=== PATIENT | female | born 1995 | race Caucasian/White ===

== ENCOUNTER 2016-07-07 22:42 | Emergency (ER) | payer OTHER ==
[2016-07-07 23:11] VITALS: BP 112/76; PULSE 74; TEMP 97.7; BMI 23.3
[2016-07-08] MEDS ORDERED: CLINDAMYCIN HCL 300 MG CAPSULE PO ONE (00:51)
--- NOTE | 2016-07-08 00:55 | PDOC ---
History of Present Illness - General History Source: Patient Exam Limitations: No Limitations <Kranthi White - Last Filed: 07/08/16 00:56> - General History Source: Patient Exam Limitations: No Limitations - History of Present Illness Initial Comments: 07/08/16 01:05 The patient is a 20 year old female, with no significant past medical history, who presents to the emergency department with left sided mouth pain and swelling s/p wisdom tooth extraction 3 days ago. Since getting her wisdom teeth extracted, the patient noticed some mild pain and swelling to the area. The patient has been taking Motrin, with minimal relief. She presents to the ED for further evaluation. The patient denies fever, chills, nausea or vomiting. Allergies: Penicillin. Past Surgical History: None reported. Social History: Non smoker. Denies alcohol or drug use. <Tamika Cagle - Last Filed: 07/08/16 01:05> - General Chief Complaint: Toothache Stated Complaint: TOOTHACHE Time Seen by Provider: 07/08/16 00:45 Past History - Psycho/Social/Smoking Cessation Hx Anxiety: No Suicidal Ideation: No Smoking History: Never smoked Have you smoked in the past 12 months: No Information on smoking cessation initiated: No Hx Alcohol Use: No Drug/Substance Use Hx: No Substance Use Type: None <Kranthi White - Last Filed: 07/08/16 00:56> <Tamika Cagle - Last Filed: 07/08/16 01:05> - Past Medical History Allergies/Adverse Reactions: Allergies Allergy/AdvReac Type Severity Reaction Status Date / Time Penicillins Allergy Verified 07/08/16 00:54 Home Medications: Ambulatory Orders Acetaminophen [Tylenol] 650 mg PO PRN PRN 07/08/16 Clindamycin [Cleocin -] 300 mg PO Q6HPO #28 capsule 07/08/16 Oxycodone HCl/Acetaminophen [Percocet 5-325 mg Tablet] 1 tab PO Q6H PRN #10 tablet MDD 4 07/08/16 Review of Systems - Review of Systems Able to Perform ROS?: Yes Comments:: 07/08/16 01:01 GENERAL/CONSTITUTIONAL: No fever or chills. No weakness. HEAD, EYES, EARS, NOSE AND THROAT: +Left sided mouth pain and swelling. No change in vision. No ear pain or discharge. No sore throat. CARDIOVASCULAR: No chest pain or shortness of breath. RESPIRATORY: No cough, wheezing, or hemoptysis. GASTROINTESTINAL: No nausea, vomiting, diarrhea or constipation. GENITOURINARY: No dysuria, frequency, or change in urination. MUSCULOSKELETAL: No joint or muscle swelling or pain. No neck or back pain. SKIN: No rash. NEUROLOGIC: No headache, vertigo, loss of consciousness, or change in strength/ sensation. ENDOCRINE: No increased thirst. No abnormal weight change. HEMATOLOGIC/LYMPHATIC: No anemia, easy bleeding, or history of blood clots. ALLERGIC/IMMUNOLOGIC: No hives or skin allergy. <Tamika Cagle - Last Filed: 07/08/16 01:05> *Physical Exam - Vital Signs Last Vital Signs Temp Pulse Resp BP Pulse Ox 97.7 F 74 18 112/76 99 07/07/16 23:09 07/07/16 23:09 07/07/16 23:09 07/07/16 23:09 07/07/16 23:09 <Kranthi White - Last Filed: 07/08/16 00:56> - Vital Signs Last Vital Signs Temp Pulse Resp BP Pulse Ox 97.7 F 74 18 112/76 99 07/07/16 23:09 07/07/16 23:09 07/07/16 23:09 07/07/16 23:09 07/07/16 23:09 - Physical Exam Comments: 07/08/16 00:59 GENERAL: Awake, alert, and fully oriented, in no acute distress. HEAD: No signs of trauma. EYES: PERRLA, EOMI, sclera anicteric, conjunctiva clear. ENT: Mild abrasion and very mild ulcer with minimal drainage no fluctuance near the left lower molar. Mild foul smell. Auricles normal inspection, hearing grossly normal, nares patent, oropharynx clear without exudates. Moist mucosa. NECK: Normal ROM, supple, no lymphadenopathy, JVD, or masses. EXTREMITIES: Normal range of motion, no edema. No clubbing or cyanosis. No cords, erythema, or tenderness. NEUROLOGICAL: Cranial nerves II through XII intact. Normal speech, normal gait. SKIN: Warm, dry, normal turgor, no rashes or lesions noted. <Tamika Cagle - Last Filed: 07/08/16 01:05> ED Treatment Course - Medications Given in the ED: ED Medications Discontinued Medications Generic Name Dose Route Start Last Admin Trade Name Patrizia PRAnthony Reason Stop Dose Admin Clindamycin HCl 300 mg 07/08/16 00:51 07/08/16 00:58 Cleocin - PO 07/08/16 00:52 300 mg ONCE ONE Administration Ibuprofen 600 mg 07/08/16 00:57 07/08/16 00:58 Motrin - PO 07/08/16 00:58 600 mg ONCE ONE Administration <Tamika Cagle - Last Filed: 07/08/16 01:05> Medical Decision Making - Medical Decision Making 07/08/16 00:56 A portion of this note was documented by scribe services under my direction. I have reviewed the details of the note, within reason, and agree with the documentation with the following case summary and management plan written by me. Patient treated in the ED. Nursing notes are reviewed and incorporated into the medical decision-making. Vital signs reviewed. Peripheral IV access obtained by the nurse, laboratory studies are drawn and sent, reviewed and interpreted by myself. Vital Signs Temp Pulse Resp BP Pulse Ox 97.7 F 74 18 112/76 99 07/07/16 23:09 07/07/16 23:09 07/07/16 23:09 07/07/16 23:09 07/07/16 23:09 20-year-old female with no past medical history presents to the immersed department status post 3 days ago for left lower wisdom tooth extraction with pain. Patient noticed mild swelling and pain despite taking Motrin. Upon evaluation, it appears that the patient has developed a small dental infection but no drainage or abscess appreciated. Patient is ALLERGIC to penicillin. We' ll initiate clindamycin have the patient follow-up with a dentist. I should patient if she develops severe swelling or high fever suspecting the antibiotics , she should return for further evaluation. Patient understands and agrees with plan. I discussed the physical exam findings, ancillary test results and final diagnoses with the patient. I answered all of the patient's questions. The patient was satisfied with the care received and felt comfortable with the discharge plan and treatment plan. The patient will call their primary care physician within 24 hours to arrange follow-up and will return to the Emergency Department with any new, persistant or worsening symptoms. <Kranthi White - Last Filed: 07/08/16 00:56> *DC/Admit/Observation/Transfer - Discharge Dispostion Admit: No <Kranthi White - Last Filed: 07/08/16 00:56> - Attestations Scribe Attestion: 07/08/16 00:58 Documentation prepared by Tamika Cagle, acting as medical record transcriber for Kranthi White MD. <Tamika Cagle - Last Filed: 07/08/16 01:05> Diagnosis at time of Disposition: Toothache - Discharge Dispostion Disposition: HOME Condition at time of disposition: Stable - Prescriptions Prescriptions: Clindamycin [Cleocin -] 300 mg PO Q6HPO #28 capsule Oxycodone HCl/Acetaminophen [Percocet 5-325 mg Tablet] 1 tab PO Q6H PRN #10 tablet MDD 4 PRN Reason: Pain Level 6-10 - Referrals Referrals: STAFF,NOT ON [Primary Care Provider] - - Patient Instructions Printed Discharge Instructions: DI for Dental Pain Additional Instructions: Please take the clindamycin as prescribed. Drink plenty of fluids and rest. Motrin as needed every 6 hours for pain. For additional relief, take a tablet of percocet every 6 hours as needed for severe pain control. Do not drink or drive on this medication. Follow up with a dentist. If you notice worsening swelling or pain or high fevers despite taking the antibiotics, please return to the ER for further evaluation.
[2016-07-08] MEDS ORDERED: CLINDAMYCIN HCL 150 MG CAPSULE (FP) ONE (00:56)
[2016-07-08] MEDS ORDERED: IBUPROFEN 600 MG TABLET (FP) PO ONE ×2 (00:57)
== END 2016-07-08 01:00 | disposition home or self-care (01) ==
LOC: SUPCPDRO 22:42 → JER 22:42
DX: K08.89 Other specified disorders of teeth and supporting structures (principal)
CPT/HCPCS: 99281-25